=== PATIENT | male | born 1985 | race Caucasian/White ===

== ENCOUNTER 2022-07-07 10:08 | Emergency (ER) | payer BC, SELFPAY ==
[2022-07-07 10:28] VITALS: BP 138/81; PULSE 102; RESP 16; TEMP 35.9; O2SAT 97
--- NOTE | 2022-07-07 10:53 | ED.URI ---
HPI - URI/Sore Throat General Chief Complaint: Upper Respiratory Infection Stated Complaint: COUGH/STREP EXPOSURE Time Seen by Provider: 07/07/22 10:50 History of Present Illness HPI Narrative: 37-year-old male presented for complaint of cough for a few days. States cough is tight nonproductive. Denies the shortness of breath, wheezing nausea vomiting diarrhea, fevers or chills. Endorses several people in the household have tested positive for strep throat this week. He is not taking anything for symptoms. Related Data Allergies Allergy/AdvReac Type Severity Reaction Status Date / Time No Known Allergies Allergy Verified 07/07/22 10:34 Review of Systems Review of Systems: CONSTITUTIONAL: Denies body aches, fever, chills EYES: Denies visual changes, redness, or discharge. ENT: Denies rhinorrhea, congestion, or otalgia. CARDIOVASCULAR: Denies chest pain, palpitations, or edema. RESPIRATORY: Denies dyspnea. GASTROINTESTINAL: Denies abdominal pain, nausea, vomiting, or diarrhea. SKIN: Denies rash, itching, or wounds. MUSCULOSKELETAL: Denies back pain, joint pain, or myalgia. NEUROLOGIC: Denies headache [facility] Past Medical History Medical History (Updated 07/07/22 @ 11:03 by Jessica Martinez, ARMATURE BANDER) No pertinent past medical history Exam Narrative: GENERAL: mildly Ill-appearing, no acute distress. EYES: conjunctivae clear ENT: Mucous membranes moist. TM pearly lynch with normal light reflex bilaterally; no tragal tenderness. Oropharynx erythematous without lesions. Tonsils enlarged without exudate. No drooling, no hoarseness, no trismus, uvula midline. No tripod positioning, hot potato voice, or soft palate swelling. NECK: Supple. No lymphadenopathy CHEST: Clear to auscultation, breath sounds equal. No respiratory distress, speaks in full sentences. HEART: Regular rate and rhythm. No murmur heard. SKIN: Warm, moist, sweat to forehead NEURO: Alert and oriented x3. Course Course Emergency Course: Patient is aware of diagnosis, understands and agrees to treatment plan. Anticipatory guidance given. Patient agrees to follow-up as directed and is aware of reasons to seek care at the emergency department. Portions of this record may have been created with voice recognition software Level of Care: Express Care Visit Vital Signs Vital signs: Vital Signs Temperature 96.7 F L 07/07/22 10:28 Pulse Rate 102 H 07/07/22 10:28 Respiratory Rate 16 07/07/22 10:28 Blood Pressure 138/81 07/07/22 10:28 Pulse Oximetry 97 07/07/22 10:28 Temperature 96.7 F L 07/07/22 10:28 Pulse Rate 102 H 07/07/22 10:28 Respiratory Rate 16 07/07/22 10:28 Blood Pressure 138/81 07/07/22 10:28 Pulse Oximetry 97 07/07/22 10:28 MDM - URI/Sore Throat MDM Narrative Medical decision making narrative: strep result reviewed with pt. Will treat based on PE, cc, and known exposure. Advise supportive treatments. Patient is appropriate for outpatient treatment and follow-up. Differential Diagnosis Differential diagnosis: Likely upper respiratory infection, viral infection and pharyngitis Lab Data Labs: Strep Screen Presumptive Negative *(Reference Range: Negative)* Discharge Plan Discharge Clinical Impression: Pharyngitis Patient Disposition: Home, Self-Care Condition: Stable Instructions: Antibiotic Form, Pharyngitis (ED) Additional Instructions: - Take the antibiotic as directed. Fever and sore throat typically resolve within one to three days. Most patients can return to work after 12 to 24 hours of antibiotic therapy, provided you are fever free and otherwise well. -Eat and drink things that are easy to swallow, like soft foods, cool liquids, tea with honey, or popsicles . -Salt water gargles and/or may use topical anesthetic ( Chloraseptic spray) or lozenges to relieve dryness or throat pain -Alternate Tylenol and ibuprofen as
== END 2022-07-07 11:02 | disposition home or self-care (01) ==
PROVIDERS: Emergency Provider Nurse Practitioner Family
DX: J02.9 Acute pharyngitis, unspecified (principal)
CPT/HCPCS: 87081; 87147; 87880; 99213; G0463

== ENCOUNTER 2023-07-13 18:47 | Emergency (ER) | payer BC, SELFPAY ==
--- NOTE | ~2023-07-13 | XR_ITS ---
EXAM: XR shoulder LT min 2V DATE: 07/13/2023 19:50 HISTORY: Fall, pain . COMPARISON: None available. FINDINGS: Normal mineralization. No fracture or dislocation. No lytic or blastic lesion. Joint space s are maintained. No erosion or periosteal change. Soft tissues within normal limits. IMPRESSION: No acute osseous finding in the left shoulder. Reviewed, dictated and finalized at location K.
--- NOTE | ~2023-07-13 | XR_ITS ---
EXAMINATION: XR ribs LT 2V w CXR 2V Exam Date/Time: 07/13/2023 19:43 CDT HISTORY: fall, pain Comparison: None available. RESULT: Lines, tubes, and devices: None. Lungs and pleura: Clear. Cardiothymic silhouette: Stable. Other: No acute osseous or upper abdominal finding. IMPRESSION: No acute cardiopulmonary process. No acute osseous finding in the left ribs. Reviewed, dictated and finalized at location K.
[2023-07-13 19:31] VITALS: BP 181/104; PULSE 89; RESP 19; TEMP 37.2; O2SAT 100
[2023-07-13 21:32] VITALS: BP 150/99; PULSE 94; RESP 19; O2SAT 97
--- NOTE | 2023-07-13 21:35 | ED.FALL ---
HPI - Fall General Chief Complaint: Fall Stated Complaint: fall, pain to left ribs Time Seen by Provider: 07/13/23 21:21 Source: patient Mode of arrival: ambulatory Limitations: no limitations History of Present Illness HPI Narrative: Patient presents to the emergency department for left-sided rib pain after a fall 1 week ago. Reports he tripped in a pothole and fell onto his left shoulder and ribs. Since he has had worsening pain in the shoulder and ribs. Worse with movement and breathing. Relieved with rest. He did not hit his head or lose consciousness. Denies fever, abdominal pain, vomiting or shortness of breath. Related Data Allergies Allergy/AdvReac Type Severity Reaction Status Date / Time No Known Allergies Allergy Verified 07/13/23 19:36 Review of Systems Review of Systems: CONSTITUTIONAL: Denies fever CARDIOVASCULAR: Reports chest/rib pain RESPIRATORY: Denies cough or dyspnea. MUSCULOSKELETAL: Reports joint pain, and myalgia. All systems reviewed & are unremarkable except as noted in HPI and below PMFSH Past Medical History Medical History (Updated 07/13/23 @ 21:38 by Ilene Xie PA-C) No pertinent past medical history Social History Social History (Updated 07/13/23 @ 21:44 by Ilene Xie PA-C) Substance use: never Exam Narrative: GENERAL: Well-appearing, well-nourished, and in no acute distress. HEAD: Normocephalic, atraumatic. EYES: EOMI. CHEST: Clear to auscultation. No respiratory distress. No wheezes rales or rhonchi HEART: Regular rate and rhythm. No murmur heard. Normal peripheral pulses. ABDOMEN: Soft, nontender, nondistended, normal active bowel sounds. EXTREMITIES: Normal range of motion. No edema. SKIN: Warm, dry, no rash. NEURO: No focal deficits. Alert and oriented x3. PSYCH: Normal mood and affect Course Course Emergency Course: patient updated on his workup and agrees with plan of care Vital Signs Vital signs: Vital Signs Temperature 98.9 F 07/13/23 19:31 Pulse Rate 89 07/13/23 19:31 Respiratory Rate 19 07/13/23 19:31 Blood Pressure 181/104 H 07/13/23 19:31 Pulse Oximetry 100 07/13/23 19:31 Oxygen Delivery Room Air 07/13/23 19:31 Temperature 98.9 F 07/13/23 19:31 Pulse Rate 94 07/13/23 21:32 Respiratory Rate 19 07/13/23 21:32 Blood Pressure 150/99 H 07/13/23 21:32 Pulse Oximetry 97 07/13/23 21:32 Oxygen Delivery Room Air 07/13/23 19:31 MDM - Fall MDM Narrative Medical decision making narrative: Patient presents to the emergency department for left-sided rib pain after an injury 1 week ago. He is afebrile and nontoxic appearing. Lungs are clear on exam. He is neurologically intact. Blood pressure elevated upon arrival, this down trended without intervention. Patient does not have any associated symptoms. Was instructed to continue to monitor and follow up with his primary provider for this. Left shoulder and rib/chest x-ray without acute abnormalities. Patient was updated on his workup and agrees with plan of care. He is to follow up with his primary provider. He was given warnings to return to the ER Differential Diagnosis Differential diagnosis: Likely other (rib contusion, rib fracture, shoulder sprain) Imaging Data Radiologist's impression: ITS Impressions Ribs w/Chest X-Ray 07/13/23 20:17 IMPRESSION: No acute cardiopulmonary process. No acute osseous finding in the left ribs. Shoulder X-Ray 07/13/23 20:17 IMPRESSION: No acute osseous finding in the left shoulder. Critical Care Time Critical Care Time Critical Care Time: No Discharge Plan Discharge Clinical Impression: Elevated blood pressure reading Contusion of rib on left side Qualifiers: Encounter type: initial encounter Qualified Code(s): S20.212A - Contusion of left front wall of thorax, initial encounter Patient Disposition: Home, Self-Care Condition: Stable Instructions: Hype
== END 2023-07-13 22:15 | disposition home or self-care (01) ==
LOC: ANHED 21:57
PROVIDERS: Emergency Provider Physician Assistant
DX: S20.212A Contusion of left front wall of thorax, initial encounter (principal); W01.0XXA Fall on same level from slipping, tripping and stumbling without subsequent striking against object, initial encounter
CPT/HCPCS: 71046; 71100; 73030; 99284

== ENCOUNTER 2024-09-29 18:04 | Emergency (ER) | payer BC, SELFPAY ==
--- NOTE | 2024-09-29 18:09 | ED_ITS ---
HPI - URI/Sore Throat General Stated Complaint: SINUS/COUGH/EARACHE Time Seen by Provider: 09/29/24 18:17 Source: patient and RN notes reviewed Mode of arrival: ambulatory Limitations: no limitations History of Present Illness HPI Narrative: 39-year-old male presents with concern for sinus congestion, cough, bilateral ear pain. Reports ear pain started today. Reports sinus congestion it has been there for couple of days. He took a Sudafed this morning. MD elicited complaint: nasal congestion and other (ear pain) Related Data Allergies Allergy/AdvReac Type Severity Reaction Status Date / Time No Known Allergies Allergy Verified 09/29/24 18:08 Review of Systems Review of Systems: CONSTITUTIONAL: Denies malaise, chills, sweats, or fever. EYES: Denies visual changes, redness, or discharge.and sore throat. CARDIOVASCULAR: Denies chest pain, palpitations, or edema. RESPIRATORY: Reports cough. Denies dyspnea. GASTROINTESTINAL: Denies abdominal pain, nausea, vomiting, diarrhea SKIN: Denies rash or itching. MUSCULOSKELETAL: Denies myalgia. NEUROLOGIC: Denies headache. All systems reviewed & are unremarkable except as noted in HPI and below PMFSH Past Medical History Medical History (Updated 09/29/24 @ 18:21 by Barbra Enciso NP) No pertinent past medical history Social History Social History (Updated 07/13/23 @ 21:44 by Ilene Xie PA-C) Substance use: never Comments At time of signature, agree with nursing past medical, surgical, social and family history. There is no relevant family history pertinent to the presenting complaint Exam Narrative: GENERAL: Well-appearing, well-nourished, and in no acute distress. HEAD: Normocephalic EYES: PERRLA, conjunctivae clear ENT: Nares clear, turbinates edematous and erythematous, clear discharge. Mucous membranes moist. TM erythematous and bulging bilaterally; no tragal tenderness. Oropharynx not erythematous without lesions. Tonsils not enlarged and without exudate, no drooling, no hoarseness, no trismus, uvula midline. NECK: Supple. No lymphadenopathy CHEST: Clear to auscultation, breath sounds equal. No wheezing, rhonchi, rales, or stridor. No respiratory distress, speaks in full sentences. HEART: Regular rate and rhythm. No murmur heard. SKIN: Warm, dry, no rash. NEURO: Alert and oriented x3. PSYCH: Normal mood and affect Course Course Emergency Course: Patient is aware of diagnosis, understands and agrees to treatment plan. Anticipatory guidance given. Patient agrees to follow-up as directed and is aware of reasons to seek care at the emergency department. Portions of this record may have been created with voice recognition software Level of Care: Express Care Visit Vital Signs Vital signs: Reviewed. MDM - URI/Sore Throat MDM Narrative Medical decision making narrative: Differential diagnosis considered: Padilla virus, strep pharyngitis, allergic rhinitis, upper respiratory tract infection, sinusitis, rhinosinusitis, nasopharyngitis. viral pharyngitis, otitis media, otitis externa, pneumonia, bronchitis, viral cough syndrome, viral syndrome, and influenza. Exam findings show no acute concerns or changes; patient is non-toxic appearing and is in no distress. Patient is appropriate for outpatient treatment and follow-up. Lab Data Attestation: I reviewed the patient's lab results. Critical Care Time Critical Care Time Critical Care Time: No Discharge Plan Discharge Clinical Impression: Otitis media Patient Disposition: Home Condition: Stable Instructions: Antibiotic Form, Ear Infection (ED) Additional Instructions: Follow-up with your doctor regarding your blood pressure Take antibiotics as directed. Recommend antihistamine such as Benadryl at night time and Zyrtec or Viviane during the day until symptoms improve Flonase nasal spray, 2 sprays in each nostril once daily until symptoms improve Also, recommend symptomatic treatment includes: rest, fluids, and increase humidity of the air at home. Recommend Acetaminophen as directed on the bottle to reduce fever, pain Please schedule a follow-up visit with your personal physician for further evaluation and treatment within 3-5days. If your symptoms persist, change or worsen significantly before you can contact your personal physician then please, without delay, go to the emergency department for further evaluation. Patient Language: Albanian Prescriptions: New amoxicillin 875 mg tablet 875 mg PO TID 10 Days Qty: 30 0RF methylprednisolone [Medrol (Biju)] 4 mg tablets,dose pack See Rx Instructions .ROUTE .COMPLEX Qty: 21 0RF Rx Instructions: orally per package directions Follow-up/Referrals: Jose Juan,Kathy [Other] Time of Disposition: 18:22
[2024-09-29 18:12] VITALS: BP 162/133; PULSE 102; RESP 18; TEMP 36.6; O2SAT 99
== END 2024-09-29 18:23 | disposition home or self-care (01) ==
PROVIDERS: Emergency Provider Nurse Practitioner
DX: H66.93 Otitis media, unspecified, bilateral (principal)
CPT/HCPCS: 99213; G0463